=== PATIENT | male | born 1990 | race Caucasian/White ===

== ENCOUNTER 2018-05-14 15:07 | Emergency (ER) | payer OTHER, BC ==
[~2018-05-14 15:07] MED LIST: LOR7.5/325 PO; PROM12.546 PO
--- NOTE | 2018-05-14 15:14 | ER Report ---
History and Physical Time Seen By MD: 15:14 HPI/ROS CHIEF COMPLAINT: Metal in eyes HISTORY OF PRESENT ILLNESS: 28-year-old male patient presents to emergency room with complaint of metal in his eyes. 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 States that he was just wearing his glasses when a piece of metal flipped up into his eye. Patient states that he does have some irritation, he did try to rinse his eye out with no improvement. Patient denies having any visual changes. He has not taken any medication for this. He denies any nausea, vomiting or diarrhea. Allergies: Coded Allergies: Sulfa (Sulfonamide Antibiotics) (Verified Allergy, 11/07/12) Home Meds Discontinued Reported Medications Promethazine Hcl (Phenergan) 12.5 Mg Tablet, 12.5 MG PO Q6-8H, #20 take as needed for nausea 11/09/12 Acetaminophen/Hydrocodone (Lortab 7.5/325 Mg) 7.5 Mg/325 Mg Tab, 1 - 2 TAB PO Q 6H, #40 1 Refill take as needed for pain 11/09/12 Past Medical/Surgical History Patient denies pertinent medical history. Patient has a surgical history of tonsillectomy. Reviewed Nurses Notes: Yes Hx Smoking: No Constitutional Vital Sign - Last 24 Hours 05/14/18 05/14/18 15:11 15:50 Temp 97.9 Pulse 87 80 Resp 20 B/P (MAP) 139/84 118/81 (93) Pulse Ox 96 96 O2 Delivery Room Air Physical Exam General appearance: Alert no distress. Respiratory: Chest is non tender, lungs are clear to auscultation. Cardiac: Regular rate and rhythm. Eyes: Patient does have obvious piece of metal noted in the right eye had approximately 3:00. Does have some erythema around the. Left eye appears that he may have a small foreign body there. DIFFERENTIAL DIAGNOSIS: After history and physical exam differential diagnosis was considered for foreign body in eye. Medical Decision Making ED Course/Re-evaluation ED Course Patient was admitted to the exam room, history and physical were obtained. Differential diagnoses were considered. Examination lungs are clear, heart was regular, patient did have obvious metal fragment retained in the right eye, 3:00 to the iris. A fluorescein exam was done had a negative Zaria sign. I did do a fluorescein exam on the left lies his complaints of irritation there. He did have a small metal fragment located right at 3:00 to the iris on the left eye as well. I was able take an 18-gauge needle was able to get the foreign body removed. Is overdue that to both eyes. Patient tolerated procedure well. Patient denies any visual changes. We will go ahead and put him on some antibiotics and discharge patient home at this time. He is follow-up with his eye doctor with any concerns. He is return to emergency room if condition worsens. Patient verbalized understanding and agreement with plan. Decision to Disposition Date: May 14, 2018 Decision to Disposition Time: 15:41 Depart Departure Latest Vital Signs Vital Signs Date Time Temp Pulse Resp B/P (MAP) Pulse Ox O2 Delivery O2 Flow Rate FiO2 05/14/18 15:50 80 118/81 (93) 96 05/14/18 15:11 97.9 20 Room Air Impression: Primary Impression: Retained intraocular foreign body of both eyes Condition: Improved Disposition: HOME OR SELF-CARE Patient Instructions: Eye Foreign Body (ED) Additional Instructions: Use antibiotic eye drop: 2 drops for times a day for 7 days. Follow up with your eye doctor with any pain, changes in your vision. Get plenty of rest. Wear a protective face shield when grinding. Return to the ER if condition worsens. DEMETRA JIMENEZ May 14, 2018 15:14
[2018-05-14] MEDS ORDERED: PROPARACAINE 0.5% OP 15ML BTL OS ONE (15:15)
[2018-05-14] MEDS ORDERED: FLUORESCEIN SOD 1 MG 1 EA STRP OS ONE (15:15)
[2018-05-14] MEDS ORDERED: PROPARACAI/FLUORESCEIN 5 ML OP DROPS OU ONE (15:20)
[2018-05-14] MEDS ORDERED: TOBRAMYCIN 0.3% OP SOLN 5 ML OU ONE (15:45)
[2018-05-14 15:50] VITALS: BP 118/81
== END 2018-05-14 15:52 | disposition home or self-care (01) ==
LOC: ER 15:16
DX: H44.7 Retained (old) intraocular foreign body, nonmagnetic (principal)
CPT/HCPCS: 99283